=== PATIENT | male | born 2000 | race Caucasian/White ===

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

== ENCOUNTER 2020-06-04 17:18 | Emergency (ER) | payer SELFPAY ==
[~2020-06-04] VITALS: Ht 177.8 cm; Wt 113.6 kg
[2020-06-04 17:29] VITALS: BP 118/77; TEMP 9.3
[2020-06-04 18:30] VITALS: PULSE 92
== END 2020-06-04 18:30 | disposition home or self-care (01) ==
LOC: COL.ER 17:18
DX: S93.402A Sprain of unspecified ligament of left ankle, initial encounter (principal); S83.92XA Sprain of unspecified site of left knee, initial encounter; Z88.0 Allergy status to penicillin; W18.42XA Slipping, tripping and stumbling without falling due to stepping into hole or opening, initial encounter; Y92.69 Other specified industrial and construction area as the place of occurrence of the external cause